=== PATIENT | female | born 2000 | race African-American/Black ===

== ENCOUNTER 2023-10-02 07:56 | Emergency (ER) | payer SELFPAY ==
[~2023-10-02] VITALS: Ht 152.4 cm; Wt 52.3 kg
[2023-10-02 08:00] VITALS: BP 100/51; PULSE 78; RESP 18; TEMP 98.6
[2023-10-02] MEDS ORDERED: SODIUM CHLORIDE 0.9% 1,000 ML IV ONE (08:15)
[2023-10-02] MEDS ORDERED: ONDANSETRON HCL 4 MG/2 ML VIAL IVP ONE (08:15)
[2023-10-02 08:39] LABS: APPEARANCE,URINE HAZY (CLEAR); BILIRUBIN,URINE NEGATIVE (NEGATIVE); COLOR,URINE LIGHT YELLOW (YELLOW); GLUCOSE, URINE (UA) NEGATIVE (NEGATIVE); KETONES,URINE NEGATIVE (NEGATIVE); LEUKOCYTE ESTERASE ,URINE SMALL (NEGATIVE); NITRATE,URINE POSITIVE (NEGATIVE); OCCULT BLOOD,URINE NEGATIVE (NEGATIVE); PH,URINE 6.5 (5.0-8.0); PROTEIN,URINE NEGATIVE (NEGATIVE); SPECIFIC GRAVITIY, URINE 1.014 (1.003-1.030); UROBILINOGEN,URINE <=1.0 mg/dL (<=1.0)
[2023-10-02 08:41] LABS: BASOPHILS % (AUTO) 0.5 % (0.0-2.0); EOSINOPHILS % (AUTO) 0.8 % (1.0-6.0); HEMATOCRIT 34.7 % (36-46); LYMPHOCYTES # (AUTO) 1.3 K/uL (1.0-4.8); LYMPHOCYTES % (AUTO) 12.9 % (22.0-44.0); MEAN CORPUSCULAR HEMOGLOBIN 30.6 pg (26.0-34.0); MEAN CORPUSCULAR HGB CONC 34.5 G/dL (31.0-37.0); MEAN CORPUSCULAR VOLUME 89 fL (80-100); MONOCYTES # (AUTO) 0.6 K/uL (0.1-1.0); MONOCYTES % (AUTO) 5.7 % (2.0-9.0); NEUTROPHILS # (AUTO) 8.2 K/uL (1.8-7.7); NEUTROPHILS % (AUTO) 80.1 % (40.0-70.0); PLATELET COUNT (AUTO) 295 K/uL (150-450); RED BLOOD CELL COUNT(AUTO) 3.91 MIL/uL (4.00-5.20); RED CELL DISTRIBUTION WIDTH 12.9 % (11.5-14.5); WHITE BLOOD COUNT (AUTO) 10.3 K/uL (4.5-11.0)
[2023-10-02 08:51] LABS: ANION GAP 5 mmol/L (8-16); CALCIUM, TOTAL 8.8 mg/dL (8.8-10.5); CARBON DIOXIDE 27 mmol/L (22-29); CHLORIDE 103 mmol/L (98-107); CREATININE 0.46 mg/dL (0.60-1.30); GLOMERULAR FILTR. RATE CALC > 60 mL/min (>60); GLUCOSE,RANDOM 88 mg/dL (70-110); POTASSIUM 3.5 mmol/L (3.5-5.1); SODIUM SERUM 135 mmol/L (136-145); UREA NITROGEN, BLOOD 6 mg/dL (7-18)
[2023-10-02 09:11] LABS: BACTERIA,URINE Many /HPF (None Seen); RBC,URINE None Seen /HPF (0-2)
[2023-10-02 09:12] LABS: SQUAMOUS EPITHELIAL CELL,UR Moderate /LPF (None Seen)
[2023-10-02] MEDS ORDERED: DOXY1TAB3 PO (09:59)
[2023-10-02] MEDS ORDERED: NITR-75 PO (09:59)
== END 2023-10-02 10:16 | disposition home or self-care (01) ==
LOC: EMS 08:04
DX: O21.9 Vomiting of pregnancy, unspecified (principal); Z3A.09 9 weeks gestation of pregnancy
CPT/HCPCS: 99285; 96374; 76801; 96361; 80048; 81001; 84702; 85025; 36415; 87086; 87186; J2405; J7030

== ENCOUNTER 2023-10-06 16:34 | Emergency (ER) | payer OTHER ==
[~2023-10-06] VITALS: Ht 157.5 cm; Wt 45.5 kg
[~2023-10-06 16:34] MED LIST: DOXY1TAB3 PO; NITR-75 PO
[2023-10-06 17:13] LABS: BASOPHILS % (AUTO) 0.6 % (0.0-2.0); EOSINOPHILS % (AUTO) 2.3 % (1.0-6.0); HEMATOCRIT 36.2 % (36-46); HEMOGLOBIN 12.1 g/dL (12.0-16.0); LYMPHOCYTES # (AUTO) 2.5 K/uL (1.0-4.8); LYMPHOCYTES % (AUTO) 17.8 % (22.0-44.0); MEAN CORPUSCULAR HGB CONC 33.5 G/dL (31.0-37.0); MEAN CORPUSCULAR VOLUME 90 fL (80-100); MONOCYTES # (AUTO) 1.1 K/uL (0.1-1.0); MONOCYTES % (AUTO) 7.7 % (2.0-9.0); NEUTROPHILS % (AUTO) 71.6 % (40.0-70.0); PLATELET COUNT (AUTO) 326 K/uL (150-450); RED BLOOD CELL COUNT(AUTO) 4.04 MIL/uL (4.00-5.20); RED CELL DISTRIBUTION WIDTH 13.1 % (11.5-14.5); WHITE BLOOD COUNT (AUTO) 13.9 K/uL (4.5-11.0)
[2023-10-06] MEDS ORDERED: HYDROCODONE/ACETAMINOPHEN 5-325 MG TABLET PO ONE (17:15)
[2023-10-06] MEDS ORDERED: KETOROLAC TROMETHAMINE 60 MG/2 ML VIAL IM ONE (17:15)
[2023-10-06] MEDS ORDERED: CEPH-558 PO (19:10)
[2023-10-06] MEDS ORDERED: ACET-2080 PO (19:10)
[2023-10-06] MEDS ORDERED: HYDR-4723 PO (19:16)
[2023-10-06 19:47] VITALS: BP 124/65; PULSE 66; RESP 16; TEMP 98.3
== END 2023-10-06 20:10 | disposition home or self-care (01) ==
LOC: EMS 16:40
DX: O03.9 Complete or unspecified spontaneous abortion without complication (principal); O23.41 Unspecified infection of urinary tract in pregnancy, first trimester; N39.0 Urinary tract infection, site not specified; Z3A.01 Less than 8 weeks gestation of pregnancy
CPT/HCPCS: 99283; 85025; 36415; 96372; J1885

== ENCOUNTER 2024-08-09 03:43 | Inpatient (IN) | payer OTHER ==
[~2024-08-09] VITALS: Ht 154.9 cm; Wt 51.7 kg
[~2024-08-09 03:43] MED LIST changes: +CEPH-558 PO; -DOXY1TAB3 PO; +HYDR-4062 PO; -NITR-75 PO
[2024-08-09 04:19] LABS: BASOPHILS % (AUTO) 0.2 % (0.0-2.0); EOSINOPHILS % (AUTO) 4.4 % (1.0-6.0); HEMATOCRIT 39.6 % (36-46); HEMOGLOBIN 12.9 g/dL (12.0-16.0); LYMPHOCYTES # (AUTO) 1.7 K/uL (1.0-4.8); LYMPHOCYTES % (AUTO) 24.5 % (22.0-44.0); MEAN CORPUSCULAR HEMOGLOBIN 28.3 pg (26.0-34.0); MEAN CORPUSCULAR HGB CONC 32.5 G/dL (31.0-37.0); MEAN CORPUSCULAR VOLUME 87 fL (80-100); MONOCYTES # (AUTO) 0.4 K/uL (0.1-1.0); MONOCYTES % (AUTO) 6.2 % (2.0-9.0); NEUTROPHILS # (AUTO) 4.6 K/uL (1.8-7.7); NEUTROPHILS % (AUTO) 64.7 % (40.0-70.0); PLATELET COUNT (AUTO) 354 K/uL (150-450); RED BLOOD CELL COUNT(AUTO) 4.55 MIL/uL (4.00-5.20); RED CELL DISTRIBUTION WIDTH 13.7 % (11.5-14.5)
[2024-08-09 04:29] LABS: ANION GAP 11 mmol/L (8-16); CALCIUM, TOTAL 8.8 mg/dL (8.8-10.5); CARBON DIOXIDE 24 mmol/L (22-29); CHLORIDE 104 mmol/L (98-107); CREATININE 0.68 mg/dL (0.60-1.30); GLOMERULAR FILTR. RATE CALC > 60 mL/min (>60); GLUCOSE,RANDOM 97 mg/dL (70-110); POTASSIUM 3.4 mmol/L (3.5-5.1); SODIUM SERUM 139 mmol/L (136-145); UREA NITROGEN, BLOOD 9 mg/dL (7-18)
[2024-08-09 04:35] LABS: % IRON SATURATION 30.5 % (22-44); IRON, SERUM 132 mcg/dL (50-175); TOTAL IRON BINDING CAPACITY 432 mcg/dL (250-450)
[2024-08-09 04:36] LABS: ACETAMINOPHEN < 2 mcg/mL (10-30); SALICYLATE 0.5 mg/dL (2.8-20.0)
[2024-08-09 04:43] LABS: ALCOHOL, BLOOD (SERUM) 115 mg/dL (0-10)
[2024-08-09 05:24] LABS: COVID AG,FIA SOURCE NASAL SWAB
[2024-08-09 05:50] LABS: SARS-COV2 (COVID) ANTIGEN,FIA Negative (Negative)
[2024-08-09] MEDS: SODIUM CHLORIDE 0.9% 1,000 ML IV ONE ×2 (08:11→08:49)
[2024-08-09] MEDS ORDERED: ONDANSETRON HCL 4 MG/2 ML VIAL IVP PRN (08:15)
[2024-08-09] MEDS: DOCUSATE SODIUM 100 MG CAPSULE PO SCH (08:35)
[2024-08-09] MEDS: FAMOTIDINE 20 MG TABLET PO SCH (08:50)
[2024-08-09 09:20] LABS: ALBUMIN 3.6 g/dL (3.4-5.0); BILIRUBIN,DIRECT 0.2 mg/dL (0.00-0.20); BILIRUBIN,TOTAL 0.6 mg/dL (0.1-1.0); TOTAL PROTEIN, SERUM 7.6 g/dL (6.4-8.2)
[2024-08-09] MEDS ORDERED: LORazepam 2 MG TABLET PO PRN (21:00)
[2024-08-09] MEDS ORDERED: HALOPERIDOL 5 MG TABLET PO PRN (21:00)
[2024-08-09] MEDS ORDERED: ZOLPIDEM TARTRATE 10 MG TABLET PO PRN (21:00)
[2024-08-10 01:20] VITALS: BP 101/54; PULSE 63; RESP 16; TEMP 97.7; O2SAT 98
[2024-08-10 08:16] VITALS: BP 96/56; PULSE 56; RESP 16; TEMP 97.8; O2SAT 97
[2024-08-10 08:16] LABS: CHOL/HDL RATIO 1.7 (3.9-5.7); FREE T4 (FREE THYROXINE) 1.11 ng/dL (0.76-1.46); THYROID STIMULATING HORMONE 0.22 uIU/mL (0.36-3.74)
[2024-08-10] MEDS ORDERED: CloNIDine HCL 0.1 MG TABLET PO PRN (10:00)
[2024-08-10] MEDS ORDERED: MAG HYDROX/ALUMINUM HYD/SIMETH ES 30 ML SUSPENSION UDCUP PO PRN (10:00)
[2024-08-10] MEDS ORDERED: GuaiFENesin/D-METHORPHAN [SUGAR-FREE] 200-20MG/10 ML SYRUP UDCUP PO PRN (10:00)
[2024-08-10] MEDS ORDERED: NICOTINE 14 MG/24 HOUR PATCH TD PRN (10:00)
[2024-08-10] MEDS ORDERED: IBUPROFEN 400 MG TABLET PO PRN (10:00)
[2024-08-10] MEDS ORDERED: ACETAMINOPHEN 325 MG TABLET PO PRN (10:00)
[2024-08-10] MEDS ORDERED: ALBUTEROL SULFATE HFA 90 MCG/PUFF 8 GM INHALER IH PRN (10:00)
[2024-08-10] MEDS ORDERED: LOPERAMIDE HCL 2 MG CAPSULE PO PRN (10:00)
[2024-08-10] MEDS ORDERED: DOCUSATE SODIUM 100 MG CAPSULE PO PRN (10:00)
[2024-08-10] MEDS ORDERED: PETROLATUM,WHITE 28 GM JELLY TP PRN (10:00)
[2024-08-10] MEDS ORDERED: MAGNESIUM HYDROXIDE SUSPENSION 30 ML UDCUP PO PRN (10:00)
[2024-08-10] MEDS ORDERED: ONDANSETRON 4 MG TABLET PO PRN (10:00)
[2024-08-10] MEDS ORDERED: SERT-438 PO (10:09)
[2024-08-10] MEDS ORDERED: HYDR-3831 PO (11:20)
[2024-08-10] MEDS: SERTRALINE HCL 50 MG TABLET PO SCH (11:34)
[2024-08-10 20:17] VITALS: BP 119/78; PULSE 73; RESP 16; O2SAT 98
[2024-08-10 21:01] VITALS: BP 119/78; PULSE 64; RESP 16; O2SAT 98
[2024-08-11 08:27] VITALS: BP 93/49; PULSE 63; RESP 16; TEMP 97.9; O2SAT 98
[2024-08-11 09:08] LABS: HEMOGLOBIN A1C 5.1 % (3.8-5.6)
[2024-08-11 09:14] LABS: THYROID STIMULATING HORMONE 0.34 uIU/mL (0.36-3.74)
[2024-08-12] MEDS ORDERED: FAMO20 PO (07:10)
[2024-08-12] MEDS ORDERED: SERT-439 PO (07:10)
[2024-08-12 08:47] VITALS: BP 109/63; PULSE 60; RESP 16; TEMP 97.4; O2SAT 97
== END 2024-08-12 19:09 | disposition home or self-care (01) | DRG 918 ==
LOC: EMS 03:44 → EDH 10:51 → UNDOADMIN 10:51 → B3A 08-10 00:01
PROVIDERS: ADMIT Psychiatry & Neurology Psychiatry; ATTEND Psychiatry & Neurology Psychiatry
PROC: GZHZZZZ Group Psychotherapy (ICD-10-PCS; principal; 2024-08-10)
PROC: GZ51ZZZ Individual Psychotherapy, Behavioral (ICD-10-PCS; 2024-08-10)
DX: T45.4X2A Poisoning by iron and its compounds, intentional self-harm, initial encounter (principal); T43.592A Poisoning by other antipsychotics and neuroleptics, intentional self-harm, initial encounter; F33.2 Major depressive disorder, recurrent severe without psychotic features; R45.851 Suicidal ideations; F10.129 Alcohol abuse with intoxication, unspecified; F41.9 Anxiety disorder, unspecified; Z20.822 Contact with and (suspected) exposure to COVID-19; E87.6 Hypokalemia; D50.9 Iron deficiency anemia, unspecified; G47.00 Insomnia, unspecified; Z79.899 Other long term (current) drug therapy; Y92.89 Other specified places as the place of occurrence of the external cause
CPT/HCPCS: 74022; 80048; 80061; 80076; 83036; 83540; 83550; 84439; 84443; 85025; 99285; G0378; G0480; G0481; J7030

== ENCOUNTER 2024-11-27 07:11 | Emergency (ER) | payer OTHER ==
[~2024-11-27] VITALS: Ht 153 cm; Wt 56.8 kg
[~2024-11-27 07:11] MED LIST changes: -CEPH-558 PO; +FAMO20 PO; -HYDR-4062 PO; +SERT-439 PO
[2024-11-27 11:40] VITALS: BP 118/70; PULSE 85; RESP 16; TEMP 98.6; O2SAT 98
== END 2024-11-27 11:51 ==
LOC: EMS 07:20
DX: T74.21XA Adult sexual abuse, confirmed, initial encounter (principal); F41.9 Anxiety disorder, unspecified; F32.A Depression, unspecified
CPT/HCPCS: 99283; Z7502